=== PATIENT | female | born 1995 | race Hispanic/Latino ===

== ENCOUNTER → 2021-02-28 | Day surgery (SDC) | payer BC ==
[~2021-02-28] MED LIST: FENTANYL CITRATE/PF 100MCG/2 ML INJ ONE; HYOSCYAMINE SULFATE 0.5 MG/ML INJ ONE; LIDOCAINE HCL 2% LOCAL INJ 5 ML SDV VIAL INJ ONE; MIDAZOLAM HCL 2 MG/2 ML VIAL ONE; PROPOFOL IV EMULSION 10 MG/ML 20 ML VIAL ONE; REGLAN10 MG PO; SIMETHICONE 40 MG/0.6 ML BTL ONE
[2021-02-28 09:26] VITALS: BP 102/70
== END | disposition home or self-care (01) ==
LOC: OR 05:54
PROVIDERS: ATTEND Internal Medicine Gastroenterology
DX: K29.70 Gastritis, unspecified, without bleeding (principal); K63.5 Polyp of colon; K52.9 Noninfective gastroenteritis and colitis, unspecified; K20.90 Esophagitis, unspecified without bleeding; K21.9 Gastro-esophageal reflux disease without esophagitis; K62.89 Other specified diseases of anus and rectum; K64.8 Other hemorrhoids; N83.201 Unspecified ovarian cyst, right side; Z91.041 Radiographic dye allergy status; Z01.812 Encounter for preprocedural laboratory examination; Z20.822 Contact with and (suspected) exposure to COVID-19
CPT/HCPCS: 43239; 45380; 81025; C9113; J1980; J2001; J2250; J2704; J3010; U0002; 45378

== ENCOUNTER 2021-03-09 08:28 | Emergency (ER) | payer BC ==
[~2021-03-09] VITALS: Ht 152.4 cm; Wt 77.1 kg
[2021-03-09] MEDS ORDERED: ONDANSETRON HCL 4 MG ORAL DISINTEGRATING TAB PO ONE (08:45)
[2021-03-09] MEDS ORDERED: ONDANSETRON HCL 4 MG ORAL DISINTEGRATING TAB ONE (08:51)
[2021-03-09 09:04] LABS: COLOR,URINE YELLOW (YELLOW)
[2021-03-09 09:06] LABS: CLARITY,URINE CLEAR (CLEAR)
[2021-03-09 09:08] LABS: BACTERIA,URINE FEW /HPF; EPITHELIAL CELLS,URINE FEW /LPF; KETONES,URINE NEGATIVE (NEGATIVE); LEUKOCYTE ESTERASE ,URINE NEGATIVE (NEGATIVE); NITRITE,URINE NEGATIVE (NEGATIVE); PROTEIN,URINE DIPSTICK TRACE (NEGATIVE); RBC,URINE 0-5 /HPF (0-5); URINE UROBILINOGEN 0.2 mg/dL (0.2 - 1); WBC,URINE (MAN) 0-5 /HPF (0-5)
[2021-03-09] MEDS ORDERED: HALOPERIDOL LACTATE 5 MG/ML VIAL IM NR (09:30)
[2021-03-09 09:54] VITALS: BP 99/63
[2021-03-09] MEDS ORDERED: REGLAN10 MG PO (10:24)
== END 2021-03-09 10:25 | disposition home or self-care (01) ==
LOC: ER 08:30
DX: R11.2 Nausea with vomiting, unspecified (principal); R10.12 Left upper quadrant pain
CPT/HCPCS: 81001; 81025; 99283; J1630; Q0162

== ENCOUNTER 2021-08-17 23:40 | Emergency (ER) | payer BC, OTHER ==
[~2021-08-17] VITALS: Ht 154.9 cm; Wt 77.1 kg
[~2021-08-17 23:40] MED LIST changes: -FENTANYL CITRATE/PF 100MCG/2 ML INJ ONE; -HYOSCYAMINE SULFATE 0.5 MG/ML INJ ONE; -LIDOCAINE HCL 2% LOCAL INJ 5 ML SDV VIAL INJ ONE; -MIDAZOLAM HCL 2 MG/2 ML VIAL ONE; -PROPOFOL IV EMULSION 10 MG/ML 20 ML VIAL ONE; -SIMETHICONE 40 MG/0.6 ML BTL ONE
[2021-08-18] MEDS ORDERED: ACETAMINOPHEN 325 MG TAB PO ONE (00:15)
[2021-08-18] MEDS ORDERED: ONDANSETRON HCL 4 MG ORAL DISINTEGRATING TAB PO ONE (00:15)
[2021-08-18] MEDS ORDERED: ONDANSETRON HCL 4 MG ORAL DISINTEGRATING TAB ONE (00:16)
[2021-08-18] MEDS ORDERED: ACETAMINOPHEN 325 MG TAB ONE (00:16)
[2021-08-18] MEDS ORDERED: IBUPROFEN 600 MG TAB PO STA (01:12)
[2021-08-18] MEDS ORDERED: IBUPROFEN 600 MG TAB ONE (01:16)
== END 2021-08-18 01:13 | disposition home or self-care (01) ==
LOC: ER 23:42
DX: R50.9 Fever, unspecified (principal); U07.1 COVID-19; J10.1 Influenza due to other identified influenza virus with other respiratory manifestations
CPT/HCPCS: 71045; 99283; Q0162; U0002

== ENCOUNTER 2023-11-12 09:01 | Emergency (ER) | payer BC ==
[~2023-11-12] VITALS: Ht 154.9 cm; Wt 81.2 kg
[~2023-11-12 09:01] MED LIST changes: +ONDANSETRON ODT4 MG PO; +PEPCID20 MG PO
[2023-11-12 09:10] VITALS: PULSE 70; RESP 15; TEMP 97
[2023-11-12 09:40] LABS: BASOPHILS # (AUTO) 0.1 (0.0-0.1); BASOPHILS % 1.1 % (0.0-1.0); EOSINOPHILS # (AUTO) 0.3 (0.0-0.4); HEMATOCRIT 42.3 % (34.2-44.1); HEMOGLOBIN 13.7 g/dL (12.0-16.0); LYMPHOCYTES # (AUTO) 2.6 (1.0-3.2); LYMPHOCYTES % 40.2 % (18.0-39.1); MEAN CORPUSCULAR HEMOGLOBIN 29.7 pg (28-32); MEAN CORPUSCULAR HGB CONC 32.4 g/dL (31-35); MEAN CORPUSCULAR VOLUME 91.8 fL (81-99); MONOCYTES # (AUTO) 0.5 (0.2-0.8); MONOCYTES % 7.3 % (4.4-11.3); NEUTROPHILS % 46.1 % (38.7-80.0); PLATELET COUNT 263 x10e3/uL (140-360); RED BLOOD COUNT 4.61 x10e6/uL (3.6-5.1); RED CELL DISTRIBUTION WIDTH 12.2 % (11.7-14.4); WHITE BLOOD COUNT 6.44 x10e3/uL (4.8-10.8)
[2023-11-12 10:00] LABS: ALBUMIN 3.8 g/dL (3.5-5.0); ALBUMIN/GLOBULIN RATIO 1.2 (0.8-2.0); ANION GAP 12.1 mmol/L (8-16); BILIRUBIN,TOTAL 0.4 mg/dL (0.2-1.2); CALCIUM 9.1 mg/dL (8.4-10.2); CREATININE, SERUM 0.87 mg/dL (0.57-1.11); POTASSIUM 4.1 mmol/L (3.5-5.1); TOTAL PROTEIN 7.1 g/dL (6.5-8.1)
[2023-11-12 10:30] VITALS: BP 129/84; PULSE 74; RESP 18; TEMP 98.6; O2SAT 99
== END 2023-11-12 10:31 | disposition home or self-care (01) ==
LOC: ER 09:08
DX: N93.8 Other specified abnormal uterine and vaginal bleeding (principal)
CPT/HCPCS: 36415; 80053; 84702; 85025; 99283